=== PATIENT | female | born 1955 | race Caucasian/White ===

== ENCOUNTER → 2024-02-07 08:29 | Outpatient (BNVA) | payer MEDICARE, OTHER, SELFPAY | PROVIDERS: Visit Provider Nurse Practitioner | DX: R39.9 Unspecified symptoms and signs involving the genitourinary system (principal) | CPT/HCPCS: 81000; 87086 ==

== ENCOUNTER → 2024-02-12 15:11 | Outpatient (BNVA) | payer MEDICARE, OTHER, SELFPAY | DX: R06.01 Orthopnea (principal) | CPT/HCPCS: 71046 ==

== ENCOUNTER → 2024-02-13 09:54 | Outpatient (BNVA) | payer MEDICARE, OTHER, SELFPAY | DX: Z13.6 Encounter for screening for cardiovascular disorders (principal); R19.7 Diarrhea, unspecified; R53.83 Other fatigue | CPT/HCPCS: 87045; 87427; 87449 ==

== ENCOUNTER 2024-02-20 07:49 | Outpatient (CLI) | payer MEDICARE, OTHER, SELFPAY ==
--- NOTE | 2024-02-20 08:00 | CT_ITS ---
WS: [id number] CT chest wo con [id number] HISTORY: abnormal chest xray, lung nodules TECHNIQUE: Axial imaging performed through the thorax. Coronal and sagittal reformats are submitted. All CT scans at [facility] use at least one of these dose optimization techniques: automated exposure control; mA and/or kV adjustment per patient size (includes targeted exams where dose is mat ched to clinical indication); or iterative reconstruction. CONTRAST: None DLP: 580.11 mGy.cm COMPARISON: Chest radiograph 02/12/2024 Lungs and central airway: Mild pulmonary hyperinflation. Numerous pulmonary nodules are noted through out both lungs. The largest nodule is 9.5 mm at the lingula. This was the nodule described on the rec ent chest radiograph. The remaining nodules are smaller but there are numerous. Pleura: Normal. No pleural effusion. Heart and pericardium: Normal size heart with no pericardial effusion. Mediastinum and mehran: Mediastinum is limited without IV contrast. No obvious lymphadenopathy is ident ified. There is a calcified lymph node in the subcarina. Vessels: Very mild atherosclerosis aorta. Normal size pulmonary artery. Chest wall and lower neck: No soft tissue masses. Upper abdomen: Hepatic steatosis. Small hiatal hernia. Low-attenuation lesion measuring 6 mm medial s uperior LEFT kidney. Hounsfield units are decreased suggest this may be a cyst. Osseous structures: Increase in lumbar lordosis. Mild concave deformity superior endplate of T12. CT/CT chest wo con [id number] IMPRESSION: 1. Numerous bilateral, multi lobar pulmonary nodules are identified. The large st nodule seen on the recent chest radiograph is calcified measuring 9.5 mm. Th e remaining nodules are noncalcified but smaller. Differential includes early m etastatic disease and postinflammatory nodules. May be related to prior granulo matous disease. PET/CT may not be of benefit at this time due to the small size of the nodules. Recommend follow-up chest CT in [address] with IV con trast would be helpful to better evaluate the hilar regions and also the superi or pole of the LEFT kidney. 2. Hepatic steatosis. 3. Indeterminant 6 mm low attenuation region superior pole LEFT kidney.
== END 2024-02-20 07:50 | disposition home or self-care (01) ==
DX: R91.8 Other nonspecific abnormal finding of lung field (principal); K76.0 Fatty (change of) liver, not elsewhere classified; N28.9 Disorder of kidney and ureter, unspecified; M40.46 Postural lordosis, lumbar region; M43.8X4 Other specified deforming dorsopathies, thoracic region; R59.0 Localized enlarged lymph nodes
CPT/HCPCS: 71250; 80053; 80061; 85025

== ENCOUNTER 2024-05-20 13:43 | Outpatient (CLI) | payer MEDICARE, OTHER, SELFPAY ==
--- NOTE | 2024-05-20 14:00 | US_ITS ---
WS: [id number] RENAL ULTRASOUND HISTORY: abnormal CT COMPARISON: CT chest 02/20/2024 TECHNIQUE: 2-D and color Doppler imaging of the kidney submitted. Right kidney: 11.6 cm x 4.4 cm x 3.6 cm. Cortex: 1.1 cm Normal echogenicity with no hydronephrosis or mass. Left kidney: 11.4 cm x 5.3 cm x 6.3 cm. Cortex: 1.2 cm Normal size kidney. No abnormality is noted within the medial LEFT kidney. There is no mass identifie d. No calyceal or medullary distortion. There is a tiny cortical cyst measuring 7 mm in the mid kidne y. Aorta: Normal. Urinary Bladder: Normal distention. US/US renal BI* [id number] IMPRESSION: 1. No mass or cyst associated with the upper pole LEFT kidney is suspected by recent noncontrast chest CT. 2. No hydronephrosis.
--- NOTE | 2024-05-20 14:00 | CTR_ITS ---
PROCEDURE INFORMATION: Exam: CT Chest With Contrast; Diagnostic Exam date and time: 05/20/2024 2:11 PM Age: 69 years old Clinical indication: Abnormal findings; Abnormal radiologic exam of lung or chest; Additional info: Abnormal CT follow-up TECHNIQUE: Imaging protocol: Diagnostic computed tomography of the chest with contrast. Radiation optimization: All CT scans at this facility use at least one of these dose optimization techniques: automated exposure control; mA and/or kV adjustment per patient size (includes targeted exams where dose is matched to clinical indication); or iterative reconstruction. Contrast material: OMNI 350; Contrast volume: 100 ml; Contrast route: INTRAVENOUS (IV); COMPARISON: CT chest wo con [id number] 02/20/2024 8:00 AM RADIATION DOSE METRICS: Total DLP (mGy-cm): 650.39 FINDINGS: Lungs: Small scattered pulmonary nodules bilaterally. While some are calcified many are not. The appear unchanged in size and number when compared to 02/20/2024. No Pleural spaces: Unremarkable. No pneumothorax. No pleural effusion. Heart: Unremarkable. No cardiomegaly. No pericardial effusion. Lymph nodes: Calcified subcarinal lymph nodes. Vasculature: Unremarkable. No aortic aneurysm. Liver: Hepatic steatosis. Bones/joints: Unremarkable. No acute fracture. Soft tissues: Unremarkable. CT/CT chest w con* [id number] IMPRESSION: Stable pulmonary nodules. Further follow-up is 6 additional months recommended.
[2024-05-20 14:15] LABS: Blood Urea Nitrogen 15 mg/dL (8-23); Glomerular Filtration Rate 71.5 mL/min (90-130)
[2024-05-20] MEDS: iohexol 350 mg/mL 500 mL Btl (per mL) IV (14:22)
== END 2024-05-20 13:44 | disposition home or self-care (01) ==
LOC: RAD 13:43
DX: R91.8 Other nonspecific abnormal finding of lung field (principal); N28.1 Cyst of kidney, acquired
CPT/HCPCS: 71260; 76770; 82565; 84520

== ENCOUNTER 2024-11-06 07:41 | Outpatient (CLI) | payer MEDICARE, OTHER, SELFPAY ==
--- NOTE | 2024-11-06 07:44 | CT_ITS ---
WS: [id number] CT chest w con* [id number] HISTORY: abnormal CT scan TECHNIQUE: Axial imaging performed through the thorax. Coronal and sagittal reformats are submitted. All CT scans at [facility] use at least one of these dose optimization techniques: automated exposure control; mA and/or kV adjustment per patient size (includes targeted exams where dose is matched to clinical indication); or iterative reconstruction. CONTRAST: Omnipaque 350; 100 mL IV. DLP: 682.34 mGy.cm COMPARISON: 05/20/2024, 02/20/2024 Lungs and central airway: Lungs are slightly hyperexpanded. Numerous bilateral pulmonary nodules are identified. The largest nodule is calcified at the lingula measuring 12 mm. The remaining nodules which are noncalcified are subcentimeter with the largest measuring 8 mm in the RIGHT upper lobe. These nodules do not appear to have changed in size or number since 02/20/2024. Pleura: Normal. No pleural effusion. Heart and pericardium: Normal size heart with no pericardial effusion. Mediastinum and emhran: Densely calcified subcarinal lymph node. No pathological lymph nodes. Vessels: Mild atherosclerosis aorta. Normal size aorta and pulmonary artery. Chest wall and lower neck: No soft tissue masses. Upper abdomen: Diffuse hepatic steatosis. No adrenal mass. Osseous structures: Mild increase in thoracic kyphosis. Very minimal anterior wedging of T12. CT/CT chest w con* [id number] IMPRESSION: 1. Numerous, stable pulmonary nodules since 02/20/2024. Largest nodule at 12 mm in the lingula is a benign granuloma. Recommend chest CT follow-up in 12 month s to document long-term stability. 2. No mediastinal or hilar adenopathy. 3. Diffuse hepatic steatosis. 4. Normal size heart.
[2024-11-06 08:11] LABS: Blood Urea Nitrogen 15 mg/dL (8-23); Glomerular Filtration Rate 71.5 mL/min (90-130)
[2024-11-06] MEDS: iohexol 350 mg/mL 500 mL Btl (per mL) IV (08:23)
== END 2024-11-06 07:42 | disposition home or self-care (01) ==
LOC: RAD 07:44
DX: R93.89 Abnormal findings on diagnostic imaging of other specified body structures (principal); R91.8 Other nonspecific abnormal finding of lung field; K76.0 Fatty (change of) liver, not elsewhere classified; I89.8 Other specified noninfective disorders of lymphatic vessels and lymph nodes; I70.0 Atherosclerosis of aorta; M40.294 Other kyphosis, thoracic region
CPT/HCPCS: 71260; 82565; 84520

== ENCOUNTER 2024-12-30 09:26 | Outpatient (CLI) | payer MEDICARE, OTHER, SELFPAY ==
[2024-12-30 09:30] VITALS: BMI 39.9
--- NOTE | 2024-12-30 09:30 | ECG_ITS ---
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 Interpretive Statements EXERCISE STRESS TEST EXERCISE DATA: The patient was exercised by Ac protocol. Baseline heart rate was 72 beats per minute. Baseline blood pressure was 152/93 millimeters of mercury. Maximal predicted heart rate was 153 beats per minute. Maximum heart rate achieved was 143, which was 93% of the maximum predicted heart rate. Maximum blood pressure was 205/70millimeters of mercury. Total exercise time was 3 minutes and 48 seconds. Maximum METs achieved was 5. The reason for ending the test was maximal effort achieved. The patient complained of shortness of breath during the stress test, which then resolved at the end of the test. ELECTROCARDIOGRAM: BASELINE: Showed sinus rhythm, left axis deviation, no significant ST-T changes at the baseline noted. [] EXERCISE: At the peak exercise level, [] No significant ST-T changes suggestive of ischemia noted. [] PVCs seen RECOVERY: During the recovery period, heart rate dropped appropriately. No significant ST-T changes in the recovery suggestive of ischemia noted. [] CONCLUSION: 1. Exercise capacity is poor 2. Heart rate response was appropriate 3. Blood pressure response was hypertensive 4. Symptoms not suggestive of ischemia. 5. Electrocardiogram portion of the stress test was not suggestive of ischemia. 6. Nuclear scan will be documented separately. Electronically Signed On 01-09-2025 12:33:50 CDT by Candelario Schneider M.D. [email or web address]
--- NOTE | 2024-12-30 09:31 | NMCV_ITS ---
NM deanna perf SPECT r/s* [id number] Jo Ann Mejia Age: 69 Gender: F : 1955 Exam Date: 12/30/2024 10:22 Ordering Phys: Kaylyn Hoyos NP Technologist: HARRIET Merchant Exam Location: [facility] Indications: cp STRESS TEST Please see separate stress test report in [facility] for full findings IMAGE PROTOCOL Rest/Stress 1 Exercise Day Radiopharmaceutical Dose (mCi) Administration Site Administered by Rest: Tc-99m 10.7 IV HARRIET Polanco Sestamibi Stress:Tc-99m 33 IV HARRIET Merchant Sestamielias Rest: 30-Dec-2024 60 Discovery 630 Stress: 30-Dec-2024 15 Discovery 630 Radiopharmaceutical was injected at 86 % maximum heart rate. Images obtained in supine and prone position. SPECT RESULTS Technical Quality: Good Raw Data Analysis: Normal Image Corrections: No attenuation or motion correction applied Summed Stress Score: 5 Summed Rest Score: 4 Summed Difference Score: 3 PERFUSION FINDINGS Small sized area of partially reversible perfusion defect seen in inferolateral wall. This is consistent with small area of prior infarct with small area of mary-infarct ischemia in left circumflex artery territory. Small sized area of fixed perfusion defect in apical wall. This is consistent with small area of prior infarct in LAD territory. FUNCTIONAL RESULTS (calculated via Gated SPECT) Stress Image LV EF (%): 74 Stress EDV (mL):117 TID: 1.12 Stress ESV (mL):30 FUNCTIONAL FINDINGS: There is normal left ventricular systolic function. IMPRESSIONS 1. Small sized area of prior infarct with small area of mary-infarct ischemia seen in left circumflex artery territory. Small sized area of prior infarct seen in LAD territory. 2. LV systolic function is normal. Candelario Schneider MD (Electronically Signed) Final Date: 30 December 2024 12:34 S
[2024-12-30 11:13] VITALS: BP 163/80; PULSE 88
== END 2024-12-30 09:27 | disposition home or self-care (01) ==
DX: R06.09 Other forms of dyspnea (principal); R93.1 Abnormal findings on diagnostic imaging of heart and coronary circulation
CPT/HCPCS: 36415; 78452; 93017; A9500

== ENCOUNTER 2025-01-07 10:43 | Outpatient (CLI) | payer MEDICARE, OTHER, SELFPAY ==
--- NOTE | 2025-01-07 11:00 | MM_ITS ---
WS: [id number] BILATERAL 3D TOMOSYNTHESIS DIGITAL SCREENING MAMMOGRAPHY WITH CAD CLINICAL INFORMATION: screening HISTORY: Screening mammogram. No current complaints. COMPARISON: 2019 TECHNIQUE: Bilateral CC and MLO views. FINDINGS: Scattered fibroglandular densities bilaterally. No suspicious focal mass, asymmetry, calcifications, or architectural distortion. No evidence of malignancy. A few incidental punctate and lucent centered calcifications. MM/MM scr tomosynthesis [id number] IMPRESSION: DENSITY: There are scattered areas of fibroglandular density. BI-RADS: 2 - Benign. FOLLOW UP: 1 Year Follow-up Recommend return to annual screening mammography.
== END 2025-01-07 10:44 | disposition home or self-care (01) ==
DX: Z12.39 Encounter for other screening for malignant neoplasm of breast (principal); R92.323 Mammographic fibroglandular density, bilateral breasts; R92.1 Mammographic calcification found on diagnostic imaging of breast
CPT/HCPCS: 77063; 77067

== ENCOUNTER → 2025-01-26 10:54 | Outpatient (BNVA) | payer MEDICARE, OTHER, SELFPAY | PROVIDERS: Visit Provider Internal Medicine Cardiovascular Disease | DX: I44.0 Atrioventricular block, first degree (principal); E78.5 Hyperlipidemia, unspecified; I44.4 Left anterior fascicular block; I70.0 Atherosclerosis of aorta; R60.0 Localized edema; I25.2 Old myocardial infarction; K76.0 Fatty (change of) liver, not elsewhere classified | CPT/HCPCS: 93005; 99204 ==

== ENCOUNTER 2025-01-27 07:53 | Outpatient (CLI) | payer MEDICARE, OTHER, SELFPAY ==
[2025-01-27 08:40] LABS: Hematocrit 43.0 % (36-47); Hemoglobin 14.10 g/dL (11.27-16.99); Mean Corpuscular HGB Conc 32.8 g/dL (30-55); Mean Corpuscular Hemoglobin 30.1 pg (27-33); Mean Corpuscular Volume 91.9 fl (85-98); Nucleated Red Blood Cells % 0 %; Platelet Count 305 10^3/cmm (157-399); Red Blood Count 4.68 10^6/uL (3.85-5.65); White Blood Count 4.78 10^3/uL (3.29-11.43)
[2025-01-27 09:00] LABS: INR 0.91 (0.83-1.21)
[2025-01-27 09:12] LABS: Alanine Aminotransferase 30 U/L (0-33); Albumin Level 4.3 g/dL (3.5-5.2); Alkaline Phosphatase 72 U/L (35-105); Anion Gap 14.5 (5-19); Aspartate Amino Transferase 28 U/L (0-32); Blood Urea Nitrogen 13 mg/dL (8-23); Calcium 9.6 mg/dL (8.5-10.5); Carbon Dioxide 28 mmol/L (22-29); Chloride 103 mmol/L (98-107); Cholesterol 238 mg/dL (0-200); Globulin 3.3 g/dL (1.3-4.6); Glucose 120 mg/dL (65-115); HDL Cholesterol 50 mg/dL (60-100); NT Pro B Type Natriuretic Pept 56 pg/mL (0-125); Osmolality Calculated 293 mOsm/kg (285-295); Potassium 4.5 mmol/L (3.5-5.1); Sodium 141 mmol/L (136-145); Total Protein 7.6 g/dL (6.6-8.7); Triglycerides 168 mg/dL (0-150)
== END 2025-01-27 07:54 | disposition home or self-care (01) ==
LOC: LAB 07:57
PROVIDERS: Visit Provider Internal Medicine Cardiovascular Disease
DX: R06.02 Shortness of breath (principal); R53.83 Other fatigue; R58 Hemorrhage, not elsewhere classified; I25.10 Atherosclerotic heart disease of native coronary artery without angina pectoris
CPT/HCPCS: 36415; 80053; 80061; 83880; 85025; 85610

== ENCOUNTER 2025-02-01 06:45 | Outpatient (CLI) | payer MEDICARE, OTHER, SELFPAY ==
--- NOTE | 2025-02-01 07:00 | USCV_ITS ---
Jo Ann Mejia Age: 69 Gender: F : 1955 Exam Date: 02/01/2025 06:59 Ordering Phys: Reggie Snell MD ([email or web address]) Technologist: VIC Exam Location: [facility] [place] Indication: SoB BP: 178 / 98 HR: 67 Rhythm: Sinus Technical Quality: Adequate MEASUREMENTS (Male / Female) Normal Values 2D ECHO LV Diastolic Diameter PLAX 4.8 cm 4.2 - 5.9 / 3.9 - 5.3 cm IVS Diastolic Thickness 1.0 cm 0.6 - 1.0 / 0.6 - 0.9 cm IVS Systolic Thickness 2.0 cm LVPW Diastolic Thickness 1.0 cm 0.6 - 1.0 / 0.6 - 0.9 cm LVPW Systolic Thickness 1.9 cm LVOT Diameter 2.1 cm LV Ejection Fraction 2D Teich 62.6 % LV Ejection Fraction MOD 4C 57.5 % LV Ejection Fraction MOD 2C 71.2 % LV Ejection Fraction 2C AL 71.3 % LA Diameter 3.1 cm RA Systolic Volume 4C AL 52.9 ml RA Systolic Volume 4C MOD 47.9 ml LA Sys Volume AL 49.9 cm cubed LA Sys Volume Index AL 21.3 cm cubed/m squared Aorta at Sinotubular Diameter 3.0 cm M-MODE LA Ao Ratio MM 1.3 AV Cusp Separation MM 2.1 cm DOPPLER AV Peak Velocity 117.0 cm/s LVOT Peak Velocity 98.0 cm/s AV Area Cont Eq vti 3.2 cm squared AV Area Cont Eq pk 2.9 cm squared MV Peak Velocity 88.0 cm/s MV Area PHT 5.1 cm squared Mitral E to A Ratio 0.9 TR Peak Velocity 101.0 cm/s TR Peak Gradient 4.1 mmHg TV Peak E Velocity 79.0 cm/s PV Peak Velocity 114.0 cm/s FINDINGS Left Ventricle Normal left ventricular size, systolic function and wall thickness, with no regional wall motion abnormalities. Ejection fraction 63%. Normal left ventricular diastolic function. Right Ventricle The right ventricle is normal in size and function. Right Atrium The right atrium is normal in size. Left Atrium The left atrium is normal in size. Mitral Valve Normal structure and function of mitral valve Aortic Valve Normal structure and function of the aortic valve Tricuspid Valve Normal structure and function of the tricuspid valve. The tricuspid valve regurgitation jet is inadequate to calculate the pulmonary pressure Pulmonic Valve Normal structure and function of pulmonic valve Pericardium Normal pericardium without effusion. Aorta Normal ascending aorta dimension. IVC The IVC is not well-visualized CONCLUSIONS 1. Normal left ventricular and right ventricular size and systolic function 2. No significant valvular abnormalities Reggie Snell MD, FACC (Electronically Signed) Final Date: 01 February 2025 14:53 S
== END 2025-02-01 06:46 | disposition home or self-care (01) ==
PROVIDERS: Visit Provider Internal Medicine Cardiovascular Disease
DX: R06.02 Shortness of breath (principal)
CPT/HCPCS: 93306

== ENCOUNTER 2025-02-08 05:51 | Outpatient (CLI) | payer MEDICARE, OTHER, SELFPAY ==
[2025-02-08] VITALS (16 sets, daily range): BP systolic 132–178; BP diastolic 67–90; PULSE 67–87; RESP 16–18; TEMP 36.8; O2SAT 94–98
--- NOTE | 2025-02-08 06:00 | XACV_ITS ---
Exam Room: 2 Ht: 165 cm Wt: 114 kg BSA: 2.34 m2 Gender: Female : 1955 Any Known Allergies: No known allergies Exam Priority: Routine Procedure(s): Procedure Description: Diagnostic procedure Procedure Description: Left Heart Catheterization Procedure Description: Left ventriculography Procedure Description: Coronary Angiography Diagnostic Cath Status: Elective Diagnostic Findings * INDICATION: Chest pain/abnormal stress test. * No significant disease noted in the Left Main, Left Anterior Descending, Right, or Circumflex coronary arteries. * Coronary angiography shows right dominance. Conclusions 1. No significant disease noted in the Left Main, Left Anterior Descending, Right, or Circumflex coronary arteries. 2. Normal left ventricular systolic function. Ejection fraction of 60%. Recommendations * Aggressive risk factor modification. * Outpatient cardiology follow up in 2-4 weeks. Interventional RX Recommendation: medical therapy and/or counseling Diagnostic RX Recommendation: medical therapy and/or counseling Anticoagulation: Heparin Ventriculography Ejection Fraction: 60.0 % Pressures Phase:Rest AO : 162 / 80 ( 115 ) @ 9:05:00 AM 171 / 79 ( 120 ) @ 9:12:00 AM 172 / 79 ( 120 ) @ 9:12:00 AM LV : 174 / -8 / 24 @ 9:10:00 AM 169 / -8 / 24 @ 9:11:00 AM 164 / -8 / 23 @ 9:12:00 AM Valves Phase:DefaultPhase AV : 0.0 @ 8:16:02 AM AV Mean Gradient: 0.0 @ 8:16:02 AM Clinical Evaluation EBL: 5mL-10mL Procedural Details Procedure Consent Obtained. Pre-Procedure Time Out. Identified patient by full name and date of as verbalized by the patient/guarantor. Does the consent match the physician's order: Yes. Accurate & Complete Informed Consent: Yes. Inpatient/Outpatient History & Physical on Chart: Yes. If H&P is completed, is and addenduem needed: Yes; If yes, is the addendum complete: Yes. Visualize and Verify Site with Patient/Guarantor: N/A. Relevant Radiology Images available: Yes. The risks, benefits, and alternatives of sedation and/or procedure were discussed by physician. The patient agrees to continue. Procedure started. [facility] Clinical Fraility Score: 3: Managing Well. Consumer Affairs Specialist Indications: New Onset Angina/Abnormal stress test. Chest Pain Symptom Assessment: Typical Angina Symptoms. Cardiovascular Instability: No. Correct patient, site and procedure confirmed by cath team. PERRLA. 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 Lungs clear x 5 lobes. IV Site on Arrival: 20 gauge in the right anticubital. IV Fluids: 0.9% NaCl at KVO. 0 mL infused prior to lab pack chemist. Pre Procedural Pulses: bilateral dorsalis pedis was 1+. Pre Procedural Pulses: bilateral posterior tibial was 1+. Pre Procedural Pulses: bilateral radial was 3+. Oxygen started at 2liters/min via nasal canula. right groin was prepped with chloroprep then draped in the usual sterile fashion. right radial was prepped with chloroprep then draped in the usual sterile fashion. Physician notified. Baseline sample Acquired. HR: 79 BPM. Patient's family in CPRU room #3. Dr. Schneider will update at the completion of the procedure. Equipment: 6F - Radial. Cardiac Cath Pack. ACIST Manifold Kit Model BT 2000. Heparinized Saline (2 units/mL), 1000 mL bag. Physician arrived. Physician scrubbed in. Immediate Pre-Procedure Time Out. Correct Patient: Yes; Correct Procedure: Yes; Correct Site: Yes; Correct Patient Position: Yes; Correct Supplies: Yes; Dried Flammable Prep: Yes; Blood Products Available: N/A;. Lidocaine 1% infiltrated to the right radial. Arterial access obtained. A 5 sudanese TIG catheter in over the exchange J wire. Multiple views taken of left coronary artery. Catheter redirected to the RCA. Multiple views taken of right coronary artery. Catheter removed over the exchange J wire. A 5 sudanese Angled Pig catheter in over J wire. EDP Sample taken: LV 174/-9,24; HR: 78 BPM; SpO2: 99%. LV gram performed in COLLINS @ 10 mL/second for a total of 30 mL. EDP Sample taken: LV 169/-9,24; HR: 77 BPM; SpO2: 99%. Pullback taken: LV 164/-9,23; AO 171/79(120); Mean: 0mmHg, Peak to Peak: 0mmHg, SEP: 7sec/min; HR: 76 BPM; SpO2: 99%. Physician scrubbed out. A TR Band was successful obtaining hemostatsis at the Right Radial artery insertion site. Post Procedure: Pulses reassessed and unchanged. PERRLA. 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 No VTE prophylaxis required. Medication's Wasted: Lidocaine 1% = 18 mL. Medication's Wasted: Nitro = 49.8 mg. Medication's Wasted: Heparin = 1000 units. Medication's Wasted: Other = Fentanyl 50 mcg. Total IV fluids: 20 mL. Post-op diagnosis: Non-obstructive CAD. Complications: none. Estimated blood loss: 5mL-10mL. Responsiveness - Normal response to verbal stimuli; alert and oriented, PERRLA. Airway - Unaffected, no intervention required; spontaneous ventilation. Circulation: W/N/L, pulses unchanged. Nausea/Vomiting: No. Vital chart was stopped. Procedure completed. Catheter removed over the exchange J wire. Patient transferred by wheelchair to CPRU. Access Site Site: Right Radial artery Sheath Size: 6 Fr Hemostasis Method: TR Band Hemostasis Success: Successful Procedure Medications Start: 7:58 AM Stop: 7:58 AM Medication: Versed Amount: 1 mg Route: I.V. Start: 7:58 AM Stop: 7:58 AM Medication: Fentanyl Amount: 50 mcg Route: I.V. Start: 8:02 AM Stop: 8:02 AM Medication: Versed Amount: 1 mg Route: I.V. Start: 8:03 AM Stop: 8:03 AM Medication: Nitrogylcerin Amount: 200 mcg Route: I.A. Start: 8:05 AM Stop: 8:05 AM Medication: Heparin Amount: 5000 units Route: I.V. I, the attending physician, have reviewed and verified all procedure medications. Yes, all medications given per verbal order History/Risk Factors Hypertension: No Dyslipidemia: Yes Peripheral Arterial Disease (PAD): No Myocardial Infarction (SC): No Obesity: Yes Renal Disease: No Tobacco Use: Never Prior Interventions PCI: No CABG: No Valve Surgery: No Report Signatures Finalized by Candelario Schneider MD on 02/08/2025 08:20 AM
--- NOTE | 2025-02-08 07:46 | P.HPUD_ITS ---
Surgery/Procedure H&P Update DATE OF PROCEDURE: February 08, 2025 DATE H&P PERFORMED: 01/26/25 H&P UPDATE INFORMATION: I have reviewed H&P completed within last 30 days, I have examined patient prior to procedure and No changes to prior documentation PREOP DIAGNOSIS: Chest pain/abnormal stress test PRIMARY INDICATION FOR PROCEDURE: Chest pain/abnormal stress test PLANNED PROCEDURE: Operation Date: 02/08/25 07:00 Proposed Procedures p Cardiac Catheterization - [facility] w/w/o LV & coros(Left) - Candelario Schneider M.D Possible percutaneous coronary intervention PATIENT REASSESSED PRIOR TO SEDATION, WITH NO CHANGE NOTED: Yes PHYSICAL EXAM: alert, oriented x 3, clear to auscultation bilaterally and regular rate & rhythm AIRWAY EVAL/ANESTHESIA PLAN: normal airway, ASA III, Monitored Anesthesia, Local Anesthesia, Risks, benefits & alternatives of sedation and/or procedure discussed and Patient agrees to continue as planned ADDITIONAL INFORMATION: Moderate sedation
--- NOTE | 2025-02-08 08:30 | PC.NURSE ---
Patient arrived to CPRU 3 post cath recovery. Pt alert and oriented X 3. Breathing even and non-labored on room air. Denies pain or nausea at this time. Pt placed on bedside child monitor. TR band to right radial . Site asymptomatic, no signs of bleeding or hematoma . Activity restrictions provided to patient, verbalized understanding .Call light in reach.
--- NOTE | 2025-02-08 10:45 | PC.NURSE ---
TR band removal note Band removal started at 0925. 2-3ml air released every 10 minutes until band deflated. TR band to right radial deflated at 1025 without complications. No signs of bleeding or hematoma. Radial pulse palpable. Large bandaid applied to site.
== END 2025-02-08 11:47 | disposition home or self-care (01) ==
PROVIDERS: Visit Provider Internal Medicine
DX: R94.39 Abnormal result of other cardiovascular function study (principal); R07.9 Chest pain, unspecified; E78.5 Hyperlipidemia, unspecified; E66.9 Obesity, unspecified; Z68.41 Body mass index [BMI] 40.0-44.9, adult; I25.2 Old myocardial infarction; I44.0 Atrioventricular block, first degree; Z82.41 Family history of sudden cardiac death; I35.0 Nonrheumatic aortic (valve) stenosis
CPT/HCPCS: 93458; 99152; 99153; C1769; C1887; C1894; J1644; J2250; J3010; J3490; J7030; J9999; Q0163; Q9967

== ENCOUNTER → 2025-02-15 09:17 | Outpatient (BNVA) | payer MEDICARE, OTHER, SELFPAY | PROVIDERS: Visit Provider Family Medicine Adult Medicine | DX: R39.89 Other symptoms and signs involving the genitourinary system (principal) | CPT/HCPCS: 81000 ==

== ENCOUNTER → 2025-02-22 14:26 | Outpatient (BNVA) | payer MEDICARE, OTHER, SELFPAY | DX: R39.89 Other symptoms and signs involving the genitourinary system (principal) | CPT/HCPCS: 80053; 81000; 87086 ==

== ENCOUNTER → 2025-02-23 13:59 | Outpatient (BNVA) | payer MEDICARE, OTHER, SELFPAY | PROVIDERS: Visit Provider Internal Medicine Cardiovascular Disease | DX: I44.0 Atrioventricular block, first degree (principal); R94.39 Abnormal result of other cardiovascular function study; I70.0 Atherosclerosis of aorta; Z79.82 Long term (current) use of aspirin | CPT/HCPCS: 99214 ==

== ENCOUNTER 2025-02-26 14:02 | Outpatient (CLI) | payer MEDICARE, OTHER, SELFPAY ==
--- NOTE | 2025-02-26 14:09 | US_ITS ---
WS: [id number] ULTRASOUND RENAL TECHNIQUE: Ultrasound examination of both kidneys. CLINICAL INFORMATION: Renal cyst COMPARISON: Ultrasound 2023 FINDINGS: RIGHT: Right kidney is normal in size and appearance. Echogenicity: Normal. Cortical thickness: 1.0 cm; Normal. Hydronephrosis: None. Perinephric fluid: None. Right kidney measures: 11.0 cm x 5.1 cm x 4.2 cm. LEFT: Left kidney is normal in size and appearance. Echogenicity: Normal. Cortical thickness: 1.1 cm; Normal. Hydronephrosis: None. Perinephric fluid: None. Left kidney measures: 11.1 cm x 5.6 cm x 4.6 cm. Normal visualized aorta. US/US renal BI* [id number] IMPRESSION: 1. No hydronephrosis in either kidney. 2. No suspicious renal parenchymal abnormalities bilaterally. 3. Normal visualized bladder.
== END 2025-02-26 14:03 | disposition home or self-care (01) ==
LOC: RAD 14:05
DX: N28.1 Cyst of kidney, acquired (principal)
CPT/HCPCS: 76770

== ENCOUNTER 2025-03-02 12:37 | Outpatient (CLI) | payer MEDICARE, OTHER, SELFPAY | END 2025-03-02 12:38 | disposition home or self-care (01) | LOC: SLEEP 12:39 | DX: G47.33 Obstructive sleep apnea (adult) (pediatric) (principal); G47.36 Sleep related hypoventilation in conditions classified elsewhere | CPT/HCPCS: G0399 ==

== ENCOUNTER → 2025-03-09 07:47 | Outpatient (BNVA) | payer MEDICARE, OTHER, SELFPAY | PROVIDERS: Visit Provider Nurse Practitioner Family | DX: L21.8 Other seborrheic dermatitis (principal); L30.9 Dermatitis, unspecified | CPT/HCPCS: 11104; 99203 ==

== ENCOUNTER 2025-03-19 11:57 | Outpatient (CLI) | payer MEDICARE, OTHER, SELFPAY ==
[2025-03-19 12:48] LABS: Hematocrit 41.8 % (36-47); Hemoglobin 13.60 g/dL (11.27-16.99); Mean Corpuscular HGB Conc 32.5 g/dL (30-55); Mean Corpuscular Hemoglobin 30.1 pg (27-33); Mean Corpuscular Volume 92.5 fl (85-98); Nucleated Red Blood Cells % 0 %; Platelet Count 305 10^3/cmm (157-399); Red Blood Count 4.52 10^6/uL (3.85-5.65); White Blood Count 5.84 10^3/uL (3.29-11.43)
[2025-03-19 12:55] LABS: Anion Gap 14.3 (5-19); Blood Urea Nitrogen 15 mg/dL (8-23); Calcium 9.8 mg/dL (8.5-10.5); Carbon Dioxide 28 mmol/L (22-29); Chloride 100 mmol/L (98-107); Glucose 107 mg/dL (65-115); Osmolality Calculated 287 mOsm/kg (285-295); Potassium 4.3 mmol/L (3.5-5.1); Sodium 138 mmol/L (136-145)
[2025-03-19 13:16] LABS: HIV 1 & 2 Antigen Non-Reactive (Non-Reactiv)
[2025-03-19 13:32] LABS: Hepatitis A Antibody IgM Non-Reactive (Nonreactive); Hepatitis B Surface Antigen Non-Reactive (Nonreactive)
== END 2025-03-19 11:58 | disposition home or self-care (01) ==
LOC: LAB 12:01
PROVIDERS: Visit Provider Nurse Practitioner Family
DX: L40.8 Other psoriasis (principal)
CPT/HCPCS: 36415; 80048; 85025; 86705; 86706; 86708; 86709; 86803; 87340; 87806

== ENCOUNTER 2025-03-24 11:10 | Outpatient (CLI) | payer MEDICARE, OTHER, SELFPAY | END 2025-03-24 11:11 | disposition home or self-care (01) | LOC: LAB 11:19 | PROVIDERS: Visit Provider Nurse Practitioner Family | DX: L40.8 Other psoriasis (principal) | CPT/HCPCS: 36415; 86480 ==

== ENCOUNTER → 2025-05-05 09:59 | Outpatient (BNVA) | payer MEDICARE, OTHER, SELFPAY | PROVIDERS: Visit Provider Nurse Practitioner Family | DX: L57.8 Other skin changes due to chronic exposure to nonionizing radiation (principal) | CPT/HCPCS: 99213 ==